=== PATIENT | female | born 1965 | race African-American/Black ===

== ENCOUNTER 2020-07-07 06:25 | Day surgery (SDC) | payer OTHER ==
[~2020-07-07] VITALS: Ht 167.6 cm; Wt 104.3 kg
[~2020-07-07 06:25] MED LIST: CETI10TA18 PO; CLOP75TA PO; EZET10TA20 PO; FURO-81 PO; GABA800T5 PO; LOSA50TA14 PO; PHEN100C PO; POTA8CAP20 PO
[2020-07-07 06:43] VITALS: BP 166/89
[2020-07-07] MEDS ORDERED: DECADRON ONE (07:24)
[2020-07-07] MEDS ORDERED: SENSORCAINE-MPF 0.25% VIAL ONE (07:24)
[2020-07-07] MEDS ORDERED: DEPO-MEDROL ONE (07:24)
[2020-07-07] MEDS ORDERED: SUBLIMAZE ONE (07:26)
[2020-07-07] MEDS ORDERED: VERSED ONE (07:27)
[2020-07-07 08:27] VITALS: BP 134/67
--- NOTE | 2020-07-07 08:30 | PRM.OPH ---
OPERATIVE REPORT OPERATIVE REPORT DATE OF SERVICE: 07/07/2020 CHIEF COMPLAINT: Leg pain PRE-OPERATIVE DIAGNOSIS: Radiculopathy, Lumbar, M54.16 POST-OPERATIVE DIAGNOSIS: Radiculopathy, Lumbar, M54.16 PROCEDURE PERFORMED: Lumbar epidural steroid injection, CPT 76292, J1040 DESCRIPTION: After explaining the risks, benefits, and complications to the epidural steriod injection, the patient was placed in the prone position. The procedure was conducted under fluoroscopic guidance. The procedure was also conducted under monitored anesthesia care. Per aseptic technique, prepped back with chlorhexidine. Wiped and draped the back. Using an 18-gauge Tuohy needle at the right paramedian L5-S1 vertebral level, noted loss of resistance at 13 cm. Negative CSF, negative paresthesia, and negative blood noted. Injected 2 cc of Omnipaque 180 was injected to confirm the needle was in the Epidural space and there was not intravascular or interspinal flow. Injected 80mg of Depomedrol dil uted in 2 cc of 0.25% Marcaine and 2 cc normal saline. Needle was removed in tact. Total Fluoroscopy time 21 seconds. The patient tolerated the procedure well. Patient was taken back to pre-op room and monitored for 15 minutes with no complications. The patient was then discharged to home in satisfactory condition. STEPHAN FOSTER MD July 07, 2020 08:29
== END 2020-07-07 09:18 | disposition home or self-care (01) ==
LOC: SDC 06:25
PROVIDERS: ATTEND Anesthesiology
DX: M54.16 Radiculopathy, lumbar region (principal); G89.29 Other chronic pain; M54.5 Low back pain; E66.01 Morbid (severe) obesity due to excess calories; I11.0 Hypertensive heart disease with heart failure; I50.9 Heart failure, unspecified; I73.9 Peripheral vascular disease, unspecified; I25.10 Atherosclerotic heart disease of native coronary artery without angina pectoris; G47.33 Obstructive sleep apnea (adult) (pediatric); K21.9 Gastro-esophageal reflux disease without esophagitis; Z98.890 Other specified postprocedural states; Z79.899 Other long term (current) drug therapy; Z68.37 Body mass index [BMI] 37.0-37.9, adult
CPT/HCPCS: 62323; J1100; J2250; J3010; J3490; Q9965; 77003; J1030

== ENCOUNTER → 2020-10-08 | Day surgery (SDC) | payer OTHER ==
[~2020-10-08] VITALS: Ht 167.6 cm; Wt 104.3 kg
[~2020-10-08] MED LIST changes: +DEPO-MEDROL ONE; +SENSORCAINE-MPF 0.25% VIAL ONE; +SUBLIMAZE ONE; +VERSED ONE
[2020-10-08 10:50] VITALS: BP 164/95
[2020-10-08 12:21] VITALS: BP 121/80
--- NOTE | 2020-10-08 12:22 | PRM.OPH ---
OPERATIVE REPORT OPERATIVE REPORT DATE OF SERVICE: 10/08/2020 CHIEF COMPLAINT: Leg pain PRE-OPERATIVE DIAGNOSIS: Radiculopathy, Lumbar, M54.16 POST-OPERATIVE DIAGNOSIS: Radiculopathy, Lumbar, M54.16 PROCEDURE PERFORMED: Lumbar epidural steroid injection, CPT 16628, J1040 DESCRIPTION: After explaining the risks, benefits, and complications to the epidural steriod injection, the patient was placed in the prone position. The procedure was conducted under fluoroscopic guidance. The procedure was also conducted under monitored anesthesia care. Per aseptic technique, prepped back with chlorhexidine. Wiped and draped the back. Using an 18-gauge Tuohy needle at the right paramedian L5-S1 vertebral level, noted loss of resistance at 13 cm. Negative CSF, negative paresthesia, and negative blood noted. Injected 2 cc of Omnipaque 180 was injected to confirm the needle was in the Epidural space and there was not intravascular or interspinal flow. Injected 80mg of Depomedrol dil uted in 2 cc of 0.25% Marcaine and 2 cc normal saline. Needle was removed in tact. Total Fluoroscopy time 15 seconds. The patient tolerated the procedure well. Patient was taken back to pre-op room and monitored for 15 minutes with no complications. The patient was then discharged to home in satisfactory condition. STEPHAN FOSTER MD Oct 08, 2020 12:22
[2020-10-08 12:35] VITALS: BP 152/90
== END | disposition home or self-care (01) ==
LOC: SDC 10:33
PROVIDERS: ATTEND Anesthesiology
DX: M51.16 Intervertebral disc disorders with radiculopathy, lumbar region (principal); G89.4 Chronic pain syndrome; I10 Essential (primary) hypertension; F41.9 Anxiety disorder, unspecified; F32.9 Major depressive disorder, single episode, unspecified; J43.9 Emphysema, unspecified; F17.210 Nicotine dependence, cigarettes, uncomplicated; Z79.899 Other long term (current) drug therapy; Z79.82 Long term (current) use of aspirin; Z95.5 Presence of coronary angioplasty implant and graft; Z82.49 Family history of ischemic heart disease and other diseases of the circulatory system
CPT/HCPCS: 62323; J2250; J3010; J3490; Q9966; 77003